=== PATIENT | female | born 1930 | race African-American/Black ===

== ENCOUNTER 2017-08-21 09:47 | Outpatient (CLI) | payer OTHER ==
[2017-08-21] MEDS ORDERED: NS 50 ML IV ONE (10:11)
[2017-08-21] MEDS ORDERED: IOHEXOL 50 ML IV ONE (10:11)
[2017-08-21] MEDS ORDERED: methylPREDNISolone ACETATE 80 MG/ML ONE (10:12)
[2017-08-21] MEDS ORDERED: LIDOCAINE 1%, 20 ML MDV 20 ML ONE (10:12)
[2017-08-21] MEDS ORDERED: BUPIVACAINE /PF 0.25% 30 ML VIAL INJ ONE (10:13)
== END 2017-08-21 21:01 | disposition home or self-care (01) ==
LOC: SRD 09:47
PROVIDERS: ATTEND Psychiatry & Neurology Neurology
DX: M16.11 Unilateral primary osteoarthritis, right hip (principal)
CPT/HCPCS: 76000; J1040; J2001; J3490; Q9967

== ENCOUNTER 2017-10-14 22:57 | Emergency (ER) | payer OTHER ==
[~2017-10-14] VITALS: Ht 157.5 cm; Wt 63.5 kg
[~2017-10-14 22:57] MED LIST: ALBU8.5H8 INH; CALC-226 PO; DIPH25CA83 PO; FLUT1DIS5 INH; FOLI-59 PO; LEVO50TA77 PO; LORA10TA7 PO; MONT10TA25 PO; OMEG1CAP55 PO; SPRIVA; [UNRECOGNIZED DRUG - OTHER]; tylenol arthritis PO
[2017-10-14 23:00] VITALS: BP_SYST 157
[2017-10-14] MEDS ORDERED: ONDANSETRON HCL 4 MG/2 ML VIAL IVP ONE (23:15)
[2017-10-14] MEDS ORDERED: MORPHINE 2 MG/ML INJ. SYRINGE IVP ONE (23:15)
[2017-10-14 23:47] LABS: BASOPHILS # (AUTO) 0.1 K/uL (0.0-0.2); BASOPHILS % (AUTO) 1.2 % (0.0-2.0); EOSINOPHILS # (AUTO) 0.1 K/uL (0.0-0.4); EOSINOPHILS % (AUTO) 0.9 % (0.0-4.0); HEMOGLOBIN 13.3 g/dL (12.0-16.0); LYMPHOCYTES # (AUTO) 2.5 K/uL (1.0-5.5); LYMPHOCYTES % (AUTO) 30.9 % (20.5-51.5); MEAN CORPUSCULAR HEMOGLOBIN 34 pg (27-31); MEAN CORPUSCULAR HGB CONC 33 % (32-36); MEAN CORPUSCULAR VOLUME 102 fL (79.0-98.0); MONOCYTES # (AUTO) 0.7 K/uL (0.0-1.0); MONOCYTES % (AUTO) 8.4 % (1.7-9.3); NEUTROPHILS # (AUTO) 4.8 K/uL (1.8-7.7); NEUTROPHILS % (AUTO) 58.6 % (40.0-70.0); PLATELET COUNT (AUTO) 259 K/uL (130-430); RED BLOOD CELL COUNT(AUTO) 3.94 MIL/uL (4.2-6.2); RED CELL DISTRIBUTION WIDTH 11.6 % (9.0-15.0); WHITE BLOOD COUNT (AUTO) 8.2 K/uL (4.8-10.8)
[2017-10-15] LABS: ANION GAP 10 (5-15); CALCIUM 8.8 mg/dL (8.4-11.0); CHLORIDE 104 mmol/L (98-107); CREATININE 0.77 mg/dL (0.55-1.30); GLUCOSE 129 mg/dL (70-99); POTASSIUM 4.1 mmol/L (3.5-5.1); SODIUM SERUM 140 mmol/L (136-145); UREA NITROGEN, BLOOD 12 mg/dL (8-21)
[2017-10-15 00:04] LABS: ALANINE AMINOTRANSFERASE 35 U/L (12-78); ALBUMIN 4.3 g/dL (3.4-4.8); ASPARTATE AMINOTRANSFERASE 23 U/L (10-37); TOTAL BILIRUBIN 0.3 mg/dL (0.0-1.0)
[2017-10-15] MEDS ORDERED: MORPHINE 4 MG/ML INJ. SYRINGE IVP ONE (00:15)
[2017-10-15 00:35] VITALS: BP_SYST 155
== END 2017-10-15 00:35 | disposition home or self-care (01) ==
LOC: SED 22:57
DX: H92.01 Otalgia, right ear (principal); N39.0 Urinary tract infection, site not specified; J45.909 Unspecified asthma, uncomplicated; I10 Essential (primary) hypertension; Z79.899 Other long term (current) drug therapy; Z88.2 Allergy status to sulfonamides
CPT/HCPCS: 36415; 80053; 85025; 96374; 96375; 96376; 99284; J2270 ×2; J2405

== ENCOUNTER 2017-12-15 08:38 | Outpatient (CLI) | payer OTHER ==
[2017-12-15] MEDS ORDERED: DEXAMETHASONE SOD PHOSPHATE 4 MG/ML VIAL ONE (09:08)
[2017-12-15] MEDS ORDERED: LIDOCAINE 1%, 20 ML MDV 20 ML ONE (09:09)
[2017-12-15] MEDS ORDERED: BUPIVACAINE /PF 0.25% 30 ML VIAL INJ ONE (09:09)
[2017-12-15] MEDS ORDERED: IOHEXOL 50 ML IV ONE (09:10)
[2017-12-15] MEDS ORDERED: methylPREDNISolone ACETATE 80 MG/ML ONE (09:22)
== END 2017-12-15 19:09 | disposition home or self-care (01) ==
LOC: SRD 08:38
PROVIDERS: ATTEND Family Medicine
DX: M17.11 Unilateral primary osteoarthritis, right knee (principal)
CPT/HCPCS: 20610; 77002; J1040; J2001; J3490; Q9967; J1100

== ENCOUNTER 2018-03-09 18:23 | Emergency (ER) | payer OTHER ==
[~2018-03-09] VITALS: Ht 165.1 cm; Wt 77.1 kg
[2018-03-09 18:42] VITALS: BP_SYST 181
[2018-03-09 19:20] LABS: BASOPHILS # (AUTO) 0.1 K/uL (0.0-0.2); EOSINOPHILS # (AUTO) 0.1 K/uL (0.0-0.4); HEMOGLOBIN 12.6 g/dL (12.0-16.0); LYMPHOCYTES # (AUTO) 2.5 K/uL (1.0-5.5); LYMPHOCYTES % (AUTO) 27.5 % (20.5-51.5); MEAN CORPUSCULAR HEMOGLOBIN 33 pg (27-31); MEAN CORPUSCULAR HGB CONC 33 % (32-36); MEAN CORPUSCULAR VOLUME 100 fL (79.0-98.0); MONOCYTES # (AUTO) 0.8 K/uL (0.0-1.0); MONOCYTES % (AUTO) 8.9 % (1.7-9.3); NEUTROPHILS # (AUTO) 5.5 K/uL (1.8-7.7); NEUTROPHILS % (AUTO) 61.6 % (40.0-70.0); PLATELET COUNT (AUTO) 260 K/uL (130-430); RED BLOOD CELL COUNT(AUTO) 3.78 MIL/uL (4.2-6.2); RED CELL DISTRIBUTION WIDTH 11.5 % (9.0-15.0)
[2018-03-09 19:27] LABS: ANION GAP 7 (5-15); CALCIUM 9.5 mg/dL (8.4-11.0); CHLORIDE 106 mmol/L (98-107); CREATININE 0.76 mg/dL (0.55-1.30); GLUCOSE 108 mg/dL (70-99); SODIUM SERUM 138 mmol/L (136-145); UREA NITROGEN, BLOOD 10 mg/dL (8-21)
[2018-03-09 19:32] LABS: ALANINE AMINOTRANSFERASE 31 U/L (12-78); ALBUMIN 3.7 g/dL (3.4-4.8); ASPARTATE AMINOTRANSFERASE 23 U/L (10-37); LIPASE 98 U/L (73-393); TOTAL BILIRUBIN 0.3 mg/dL (0.0-1.0)
[2018-03-09 20:12] LABS: PROTHROMBIN TIME 10.5 SECS (9.5-12.5)
[2018-03-09 20:12] LABS: BILIRUBIN,URINE NEGATIVE (NEGATIVE); BLOOD, URINE NEGATIVE (NEGATIVE); CLARITY/URINE CLEAR (CLEAR); COLOR,URINE YELLOW (YELLOW); GLUCOSE,URINE NEGATIVE (NEGATIVE); KETONES,URINE NEGATIVE (NEGATIVE); LEUKOCYTE ESTERASE ,URINE NEGATIVE (NEGATIVE); NITRITE, URINE NEGATIVE (NEGATIVE); PROTEIN URINE NEGATIVE (NEGATIVE); UROBILINOGEN,URINE 0.2 (0.2-1.0)
[2018-03-09] MEDS ORDERED: NACL 0.9% 1,000 ML IV ONE (20:15)
[2018-03-09] MEDS ORDERED: MAGNESIUM CITRATE 300 ML ORAL SOLUTION PO ONE (20:45)
[2018-03-09 21:25] VITALS: BP_SYST 187
== END 2018-03-09 21:25 | disposition home or self-care (01) ==
LOC: SED 18:23
DX: K59.00 Constipation, unspecified (principal); I10 Essential (primary) hypertension; J45.909 Unspecified asthma, uncomplicated; Z96.642 Presence of left artificial hip joint; Z88.6 Allergy status to analgesic agent; Z79.899 Other long term (current) drug therapy
CPT/HCPCS: 36415; 71045; 74021; 74176; 80053; 81003; 83605; 83690; 84484; 85025; 85610; 85730; 87040; 87086; 93005; 99285; J7030

== ENCOUNTER 2018-08-02 08:24 | Emergency (ER) | payer OTHER ==
[~2018-08-02] VITALS: Ht 167.6 cm; Wt 65.8 kg
[~2018-08-02 08:24] MED LIST changes: -CALC-226 PO; +CALC-823 PO; -LEVO50TA77 PO; +SYN50 PO
[2018-08-02 08:35] VITALS: BP_SYST 166
[2018-08-02] MEDS ORDERED: MORPHINE 4 MG/ML INJ. SYRINGE IM ONE (09:00)
[2018-08-02] MEDS ORDERED: ONDANSETRON 4 MG ODT TAB PO ONE (09:00)
[2018-08-02 09:40] VITALS: BP_SYST 162
== END 2018-08-02 09:40 | disposition home or self-care (01) ==
LOC: SED 08:24
DX: G89.29 Other chronic pain (principal); M25.551 Pain in right hip; J45.909 Unspecified asthma, uncomplicated; I10 Essential (primary) hypertension; Z88.6 Allergy status to analgesic agent; Z79.899 Other long term (current) drug therapy
CPT/HCPCS: 96372; 99283; J2270; Q0162

== ENCOUNTER 2018-09-13 06:46 | Emergency (ER) | payer OTHER ==
[~2018-09-13] VITALS: Ht 165.1 cm; Wt 63.5 kg
[2018-09-13 06:50] VITALS: BP_SYST 159
--- NOTE | 2018-09-13 06:55 | NUR ---
Patient to ER bed 7 to gown for evaluation. Side rails up. Report received by .
[2018-09-13] MEDS ORDERED: NACL 0.9% 1,000 ML IV ONE (07:15)
[2018-09-13] MEDS ORDERED: MECLIZINE HCL 25 MG TABLET (ANITVERT) PO ONE (07:15)
--- NOTE | 2018-09-13 07:26 | NUR ---
Pt complaining of dizziness and generalized weakness after taking her scheduled Gabopentin at 2300 last night. No complaint of pain or SOB. right eye does not open but PT stated this is normal and that she is already under care for the condition: denies Hx of CVA, hand and pedal strength strong and equal. Pt is [employer] and left her hearing aids at home. Pt also wears corrective lenses which are not with her.
[2018-09-13 07:40] LABS: BASOPHILS # (AUTO) 0.1 K/uL (0.0-0.2); BASOPHILS % (AUTO) 0.8 % (0.0-2.0); EOSINOPHILS # (AUTO) 0.1 K/uL (0.0-0.4); EOSINOPHILS % (AUTO) 1.1 % (0.0-4.0); HEMATOCRIT 41.4 % (36-48); LYMPHOCYTES # (AUTO) 1.7 K/uL (1.0-5.5); LYMPHOCYTES % (AUTO) 20.9 % (20.5-51.5); MEAN CORPUSCULAR HEMOGLOBIN 31 pg (27-31); MEAN CORPUSCULAR HGB CONC 31 % (32-36); MEAN CORPUSCULAR VOLUME 100 fL (79.0-98.0); MONOCYTES # (AUTO) 0.6 K/uL (0.0-1.0); NEUTROPHILS # (AUTO) 5.5 K/uL (1.8-7.7); NEUTROPHILS % (AUTO) 69.2 % (40.0-70.0); PLATELET COUNT (AUTO) 249 K/uL (130-430); RED BLOOD CELL COUNT(AUTO) 4.14 MIL/uL (4.2-6.2); RED CELL DISTRIBUTION WIDTH 11.3 % (9.0-15.0)
--- NOTE | 2018-09-13 07:40 | NUR ---
Received call from Pt's son, who stated she has mild dementia and is under the impression she should walk around after taking gabopentin, even though her MD told her it can cause dizziness.
[2018-09-13 07:44] LABS: ANION GAP 9 (5-15); CALCIUM 9.7 mg/dL (8.4-11.0); CHLORIDE 103 mmol/L (98-107); CREATININE 0.69 mg/dL (0.55-1.30); GLUCOSE 110 mg/dL (70-99); POTASSIUM 3.9 mmol/L (3.5-5.1); SODIUM SERUM 139 mmol/L (136-145); UREA NITROGEN, BLOOD 13 mg/dL (8-21)
[2018-09-13 07:48] LABS: PROTHROMBIN TIME 9.7 SECS (9.5-12.5)
[2018-09-13 07:49] LABS: ALANINE AMINOTRANSFERASE 25 U/L (12-78); ALBUMIN 3.8 g/dL (3.4-4.8); ASPARTATE AMINOTRANSFERASE 19 U/L (10-37); TOTAL BILIRUBIN 0.5 mg/dL (0.0-1.0)
--- NOTE | 2018-09-13 08:45 | NUR ---
ER Dr. Eason at bedside examining patient.
--- NOTE | 2018-09-13 08:57 | NUR ---
Pt refused angiocath, even after MD consult. MD notified.
--- NOTE | 2018-09-13 09:14 | NUR ---
Patient given written and verbal discharge instructions and verbalizes understanding. ER MD discussed with patient the results and treatment provided. Patient in stable condition. ID arm band removed. Rx of Meclizine given. Patient educated on pain management and to follow up with PMD. Pain Scale 0/10. Opportunity for questions provided and answered. Medication side effect fact sheet provided.
[2018-09-13 09:19] VITALS: BP_SYST 146
== END 2018-09-13 09:14 | disposition home or self-care (01) ==
LOC: SED 06:46
DX: R42 Dizziness and giddiness (principal); G89.29 Other chronic pain; J45.909 Unspecified asthma, uncomplicated; I10 Essential (primary) hypertension; Z79.899 Other long term (current) drug therapy; Z88.6 Allergy status to analgesic agent
CPT/HCPCS: 36415; 70450; 71045; 80053; 83605; 84484; 85025; 85610; 85730; 87040; 93005; 99285; J7030; J8597

== ENCOUNTER 2019-01-07 17:48 | Inpatient (IN) | payer OTHER ==
[~2019-01-07] VITALS: Ht 165.1 cm; Wt 63.6 kg
[2019-01-07 17:59] VITALS: BP_SYST 122
[2019-01-07 18:49] LABS: BASOPHILS # (AUTO) 0.1 K/uL (0.0-0.2); BASOPHILS % (AUTO) 0.5 % (0.0-2.0); EOSINOPHILS # (AUTO) 0.1 K/uL (0.0-0.4); EOSINOPHILS % (AUTO) 0.9 % (0.0-4.0); HEMOGLOBIN 13.5 g/dL (12.0-16.0); LYMPHOCYTES # (AUTO) 2.2 K/uL (1.0-5.5); LYMPHOCYTES % (AUTO) 20.3 % (20.5-51.5); MEAN CORPUSCULAR HEMOGLOBIN 32 pg (27-31); MEAN CORPUSCULAR HGB CONC 33 % (32-36); MEAN CORPUSCULAR VOLUME 97 fL (79.0-98.0); MONOCYTES # (AUTO) 0.6 K/uL (0.0-1.0); MONOCYTES % (AUTO) 5.2 % (1.7-9.3); NEUTROPHILS # (AUTO) 7.8 K/uL (1.8-7.7); NEUTROPHILS % (AUTO) 73.1 % (40.0-70.0); PLATELET COUNT (AUTO) 205 K/uL (130-430); RED BLOOD CELL COUNT(AUTO) 4.24 MIL/uL (4.2-6.2); RED CELL DISTRIBUTION WIDTH 12.4 % (9.0-15.0); WHITE BLOOD COUNT (AUTO) 10.8 K/uL (4.8-10.8)
[2019-01-07 19:05] LABS: ANION GAP 8 (5-15); CALCIUM 9.4 mg/dL (8.4-11.0); CHLORIDE 104 mmol/L (98-107); CREATININE 0.85 mg/dL (0.55-1.30); GLUCOSE 116 mg/dL (70-99); POTASSIUM 4.1 mmol/L (3.5-5.1); SODIUM SERUM 139 mmol/L (136-145); UREA NITROGEN, BLOOD 21 mg/dL (8-21)
[2019-01-07 19:09] LABS: INR 0.9 (0.8-1.2); PROTHROMBIN TIME 9.5 SECS (9.5-12.5)
[2019-01-07 19:11] LABS: ALANINE AMINOTRANSFERASE 26 U/L (12-78); ALBUMIN 3.7 g/dL (3.4-4.8); ASPARTATE AMINOTRANSFERASE 28 U/L (10-37); TOTAL BILIRUBIN 0.3 mg/dL (0.0-1.0)
[2019-01-07] MEDS ORDERED: LIDOCAINE/EPI 1% 1:100000 20 ML VIAL IJ ONE (21:00)
[2019-01-07] MEDS ORDERED: BACITRACIN 1 GM OINT TP ONE (21:00)
[2019-01-07] MEDS ORDERED: LevALBUTEROL HCL 1.25 MG/0.5 ML *CONC.* VIAL.NEB (XOPENEX CONC.) INH ONE (22:00)
[2019-01-07] MEDS ORDERED: IPRATROPIUM BROM 0.5 MG/2.5 ML VIAL.NEB (ATROVENT) IH ONE (22:00)
[2019-01-07] MEDS ORDERED: CELE50CA PO (22:07)
[2019-01-07] MEDS ORDERED: DILT30TA36 PO (22:08)
[2019-01-07] MEDS ORDERED: ACETAMINOPHEN 325 MG TABLET PO PRN (23:15)
[2019-01-07 23:35] VITALS: BP_SYST 130
[2019-01-08 03:01] VITALS: BP_SYST 130
[2019-01-08] MEDS: IPRATROPIUM/ALBUTEROL SULFATE 3 ML AMPUL.NEB (DUONEB) INH SCH ×3 (07:45→23:16)
[2019-01-08 08:24] VITALS: BP_SYST 154
[2019-01-08] MEDS: FAMOTIDINE 20 MG TABLET PO SCH (08:26)
[2019-01-08] MEDS ORDERED: LEVOTHYROXINE SODIUM 0.05 MG TABLET PO ONE (08:30)
[2019-01-08 08:46] VITALS: BP_SYST 154
[2019-01-08] MEDS: ACETAMINOPHEN 325 MG TABLET PO PRN (09:11)
[2019-01-08 11:26] VITALS: BP_SYST 145
[2019-01-08 12:36] LABS: BILIRUBIN,URINE NEGATIVE (NEGATIVE); BLOOD, URINE NEGATIVE (NEGATIVE); CLARITY/URINE CLEAR (CLEAR); COLOR,URINE YELLOW (YELLOW); GLUCOSE,URINE NEGATIVE (NEGATIVE); KETONES,URINE NEGATIVE (NEGATIVE); LEUKOCYTE ESTERASE ,URINE NEGATIVE (NEGATIVE); NITRITE, URINE NEGATIVE (NEGATIVE); PH,URINE 5.5 (5.0-8.0); PROTEIN URINE NEGATIVE (NEGATIVE); UROBILINOGEN,URINE 0.2 (0.2-1.0)
[2019-01-08] MEDS ORDERED: ZOLPIDEM TARTRATE 5 MG TABLET PO PRN (14:00)
[2019-01-08 15:37] VITALS: BP_SYST 140
[2019-01-08] MEDS: MONTELUKAST 10 MG TABLET PO SCH (17:38)
[2019-01-08 20:36] VITALS: BP_SYST 155
[2019-01-08] MEDS: GABAPENTIN 100 MG CAPSULE PO SCH (20:37)
[2019-01-09 01:32] VITALS: BP_SYST 137
[2019-01-09] MEDS: ACETAMINOPHEN 325 MG TABLET PO PRN (05:56)
[2019-01-09] MEDS: LEVOTHYROXINE SODIUM 0.05 MG TABLET PO SCH (06:00)
[2019-01-09] MEDS: IPRATROPIUM/ALBUTEROL SULFATE 3 ML AMPUL.NEB (DUONEB) INH SCH ×3 (07:30→23:03)
[2019-01-09 08:02] VITALS: BP_SYST 120
[2019-01-09] MEDS: FAMOTIDINE 20 MG TABLET PO SCH (08:11)
[2019-01-09 11:35] VITALS: BP_SYST 92
[2019-01-09 15:37] VITALS: BP_SYST 105
[2019-01-09] MEDS: MONTELUKAST 10 MG TABLET PO SCH (17:06)
[2019-01-09 21:09] VITALS: BP_SYST 119
[2019-01-09] MEDS: GABAPENTIN 100 MG CAPSULE PO SCH (22:20)
[2019-01-10 03:53] VITALS: BP_SYST 89
[2019-01-10 04:12] VITALS: BP_SYST 121
[2019-01-10] MEDS: LEVOTHYROXINE SODIUM 0.05 MG TABLET PO SCH (05:59)
[2019-01-10] MEDS: IPRATROPIUM/ALBUTEROL SULFATE 3 ML AMPUL.NEB (DUONEB) INH SCH ×2 (07:29→15:21)
[2019-01-10 08:00] VITALS: BP_SYST 102
[2019-01-10] MEDS: FAMOTIDINE 20 MG TABLET PO SCH (08:15)
[2019-01-10] MEDS: ACETAMINOPHEN 325 MG TABLET PO PRN (11:37)
[2019-01-10 11:41] VITALS: BP_SYST 122
[2019-01-10 14:22] VITALS: BP_SYST 122
[2019-01-10 16:40] VITALS: BP_SYST 118; BP_SYST 154
== END 2019-01-10 15:44 | DRG 605 ==
LOC: SED 17:48 → SMU 23:02
PROVIDERS: ADMIT Internal Medicine; ATTEND Internal Medicine
PROC: 0HQ1XZZ Repair Face Skin, External Approach (ICD-10-PCS; principal; 2019-01-07)
DX: S01.81XA Laceration without foreign body of other part of head, initial encounter (principal); J45.901 Unspecified asthma with (acute) exacerbation; S09.8XXA Other specified injuries of head, initial encounter; E03.9 Hypothyroidism, unspecified; I10 Essential (primary) hypertension; M19.90 Unspecified osteoarthritis, unspecified site; R29.6 Repeated falls; Z96.649 Presence of unspecified artificial hip joint; R26.9 Unspecified abnormalities of gait and mobility; G89.29 Other chronic pain; R73.9 Hyperglycemia, unspecified; W18.09XA Striking against other object with subsequent fall, initial encounter; Y93.89 Activity, other specified; Y92.89 Other specified places as the place of occurrence of the external cause; Y99.8 Other external cause status; Z88.6 Allergy status to analgesic agent; Z79.899 Other long term (current) drug therapy
CPT/HCPCS: 36415; 70450-TC; 70486-TC; 73030; 80053; 81003; 82306; 82607; 84443-TC; 84484; 85025; 85610-TC; 85730-TC; 93005; 94640; 94760; 97116-GP; 97530-GP; 99285; J7612; J7620

== ENCOUNTER 2019-08-29 17:21 | Inpatient (IN) | payer OTHER ==
[~2019-08-29] VITALS: Ht 157.5 cm; Wt 59.0 kg
[2019-08-29 17:21] VITALS: BP_SYST 175
[~2019-08-29 17:21] MED LIST changes: +CELE50CA PO; +DILT30TA36 PO; -LORA10TA7 PO
--- NOTE | 2019-08-29 17:21 | NUR ---
BROUGHT BACK TO BED #1 VIA WHEELCHAIR, PLACED IN BED AND TRIAGED. REPORT GIVEN TO RHINA
--- NOTE | 2019-08-29 17:30 | NUR ---
pt brought in by son Jaylyn Washington. Pt and son state that she has been feeling dizzy, weak, excessively thirsty for past few days. Pt denies chest pain, n/v, diarrhea, sob. Pt denies any other medical complaint at this time. Pt given warm blanket and pillow. Pt vss, placed on monitor, will continue to monitor. Pt son bedside, assisting in evaluation. Pt and family state pt is full code.
--- NOTE | 2019-08-29 17:32 | NUR ---
ROCIO Valente at bedside examining patient.
[2019-08-29] MEDS ORDERED: NACL 0.9% 1,000 ML IV ONE (17:45)
[2019-08-29] MEDS ORDERED: hydrALAZINE HCL 20 MG/ML VIAL IVP ONE (18:15)
[2019-08-29 18:17] LABS: BASOPHILS # (AUTO) 0.1 K/uL (0.0-0.2); BASOPHILS % (AUTO) 1.4 % (0.0-2.0); EOSINOPHILS # (AUTO) 0.1 K/uL (0.0-0.4); EOSINOPHILS % (AUTO) 0.6 % (0.0-4.0); HEMATOCRIT 39.6 % (36-48); HEMOGLOBIN 13.3 g/dL (12.0-16.0); LYMPHOCYTES # (AUTO) 2.2 K/uL (1.0-5.5); MEAN CORPUSCULAR HEMOGLOBIN 35 pg (27-31); MEAN CORPUSCULAR HGB CONC 34 % (32-36); MEAN CORPUSCULAR VOLUME 103 fL (79.0-98.0); NEUTROPHILS # (AUTO) 6.6 K/uL (1.8-7.7); PLATELET COUNT (AUTO) 228 K/uL (130-430); RED BLOOD CELL COUNT(AUTO) 3.83 MIL/uL (4.2-6.2); RED CELL DISTRIBUTION WIDTH 12.3 % (9.0-15.0); WHITE BLOOD COUNT (AUTO) 10.1 K/uL (4.8-10.8)
[2019-08-29 18:26] LABS: ANION GAP 8 (5-15); CALCIUM 9.3 mg/dL (8.4-11.0); CHLORIDE 103 mmol/L (98-107); CREATININE 0.68 mg/dL (0.55-1.30); GLUCOSE 103 mg/dL (70-99); POTASSIUM 3.9 mmol/L (3.5-5.1); SODIUM SERUM 138 mmol/L (136-145); UREA NITROGEN, BLOOD 12 mg/dL (8-21)
[2019-08-29 18:32] LABS: ALANINE AMINOTRANSFERASE 19 U/L (12-78); ASPARTATE AMINOTRANSFERASE 21 U/L (10-37); TOTAL BILIRUBIN 0.4 mg/dL (0.0-1.0)
[2019-08-29 18:35] LABS: BILIRUBIN,URINE NEGATIVE (NEGATIVE); BLOOD, URINE NEGATIVE (NEGATIVE); CLARITY/URINE CLEAR (CLEAR); COLOR,URINE YELLOW (YELLOW); GLUCOSE,URINE NEGATIVE (NEGATIVE); KETONES,URINE NEGATIVE (NEGATIVE); LEUKOCYTE ESTERASE ,URINE NEGATIVE (NEGATIVE); NITRITE, URINE NEGATIVE (NEGATIVE); PROTEIN URINE NEGATIVE (NEGATIVE); UROBILINOGEN,URINE 0.2 (0.2-1.0)
--- NOTE | 2019-08-29 19:00 | NUR ---
- Auther Felix, son Phone number.
--- NOTE | 2019-08-29 19:30 | NUR ---
Pt bed linen changed due to urinary incontinence. New gown, New linens, New warm blanket. pt rolled to perform linen replacement.
--- NOTE | 2019-08-29 19:41 | NUR ---
Pt was given apple juice at request. Pt swallowed without complication.
--- NOTE | 2019-08-29 20:30 | NUR ---
Patient transported to radiology via [place], accompanied by Caitlin.
--- NOTE | 2019-08-29 20:45 | NUR ---
Returned from radiology, back to [facility].
--- NOTE | 2019-08-29 21:00 | NUR ---
Pt son stated that he forgot medication list at home. Stated he will come back and visit tomorrow and to call if she needs to be transferred to different facility.
--- NOTE | 2019-08-29 22:28 | NUR ---
Phone orders from . Read back and confirmed.
--- NOTE | 2019-08-29 22:29 | NUR ---
M/S floor called, pt going to 104B
--- NOTE | 2019-08-29 22:33 | NUR ---
Gave report to DILLON Funes. Endorsed all care
--- NOTE | 2019-08-29 22:51 | NUR ---
ADMISSION NOTE Received patient from ER via [place], received report from DILLON cantu. Patient admitted with diagnosis of acute diverticulitis. Patient oriented to hospital routine, call light, toileting and safety-patient verbalized understanding.
[2019-08-29 23:00] VITALS: BP_SYST 136
--- NOTE | 2019-08-29 23:00 | NUR ---
INITIAL NOTE AT INITIAL ASSESSMENT, PATIENT IS RESTING IN BED, STABLE, NO SIGNS OF RESPIRATORY DISTRESS. PLAN OF CARE FOR THE EVENING IS COMMUNICATED WITH THE PATIENT. PATIENT VERBALIZES SOME PAIN, PRN MEDICATION MEDICATION FOR PAIN WILL BE REQUESTED FROM THE MD. PATIENT REFUSES TEACHING FOR CALL LIGHT. BED IS LOCKED, ALARMED, AND AT THE LOWEST LEVEL. FALL AND SAFETY PRECAUTIONS WILL BE TAKEN THROUGHOUT THE SHIFT.
[2019-08-29] MEDS ORDERED: ACETAMINOPHEN 325 MG TABLET PO PRN (23:15)
[2019-08-29] MEDS ORDERED: traMADol HCL HCL 50 MG TABLET (ULTRAM) PO PRN (23:15)
[2019-08-29] MEDS ORDERED: DIPHENHYDRAMINE HCL 25 MG CAPSULE PO PRN (23:15)
[2019-08-29] MEDS ORDERED: cloNIDine HCL 0.1 MG TABLET PO PRN (23:15)
[2019-08-29] MEDS ORDERED: ALBUTEROL SULFATE 0.083% 2.5 MG/3 ML VIAL.NEB INH PRN (23:30)
--- NOTE | 2019-08-29 23:30 | NUR ---
DR. JUSTIN ROUNDS DR. JUSTIN IS AT PATIENT'S BEDSIDE AT THIS TIME FOR ROUNDS.
[2019-08-29] MEDS: GABAPENTIN 100 MG CAPSULE PO ONE (23:49)
[2019-08-29 23:53] VITALS: BP_SYST 136
[2019-08-29] MEDS: DILTIAZEM HCL 30 MG TABLET PO ONE (23:58)
[2019-08-29] MEDS: LR 1,000 ML IV SCH (23:59)
[2019-08-30] MEDS ORDERED: LORazepam 2 MG/ML VIAL IVP PRN
--- NOTE | 2019-08-30 00:10 | NUR ---
PATIENT REFUSES MEDS PATIENT IS REFUSING MEDICATIONS AT THIS TIME WHICH ARE MEDICATIONS THAT SHE HERSELF REQUESTED DURING ADMISSION TO [facility] FLOOR. SHE STATES "THEY DON'T LOOK LIKE THE ONES I TAKE!" EDUCATIONAL EFFORTS ON MEDICATIONS WERE UNSUCCESSFUL.
[2019-08-30] MEDS: DILTIAZEM HCL 30 MG TABLET PO ONE (00:26)
[2019-08-30] MEDS ORDERED: PIPERACILLIN/TAZOBACTAM 3.375 GM/VIAL (ZOSYN) IV ONE (00:26)
[2019-08-30] MEDS: LR 1,000 ML IV SCH (00:26)
[2019-08-30] MEDS: GABAPENTIN 100 MG CAPSULE PO ONE (00:27)
--- NOTE | 2019-08-30 00:30 | NUR ---
PATIENT PULLS OUT IV PATIENT PULLED OUT HER IV AT THIS TIME, CATHETER TIP IS FOUND WITH TIP INTACT. PATIENT HAS NO ACTIVE BLEED. SHE IS UNCOOPERATIVE AT THIS TIME AND REFUSES TO HAVE AN IV PLACED ON HER DESPITE EDUCATIONAL EFFORTS. WILL CONTINUE TO ENCOURAGE.
[2019-08-30] MEDS ORDERED: HALOPERIDOL LACTATE 5 MG/ML VIAL IM PRN (01:00)
--- NOTE | 2019-08-30 02:00 | NUR ---
BEHAVIOR NOTE PATIENT HAS BEEN RESTLESS, SHE TRIED TO KICK WILL DIAS WHILE LARISSA WAS TRYING TO ASSIST HER TO THE BEDSIDE COMMODE PER PATIENT REQUEST. PATIENT BEHAVES AGGRESSIVELY WHILE STAFF MEMBERS ARE IN HER SIGHT; SHE IS CALM WHEN SHE IS BEING WATCHED FROM THE NURSING STATION WITHOUT HER KNOWING. SHE IS AGGRAVATED WHEN STAFF TRY TO HELP HER SAFELY GET INTO BED DESPITE HER BLE WEAKNESS. EVEN AFTER PROVIDING HYGIENE CARE, FRESH WARM BLANKETS AND SNACKS, PATIENT STATES "YOU ARE ARE ALL GOING TO LONG-TERM FOR KIDNAPPING ME". FALL AND SAFETY PRECAUTIONS ARE IN PLACE.
--- NOTE | 2019-08-30 04:00 | NUR ---
NOTE PATIENT BEHAVIOR CONTINUES TO BE RESTLESS AT TIMES. SHE IS STABLE, NO SIGNS OF RESPIRATORY DISTRESS. BED IS LOCKED, ALARMED, AND AT THE LOWEST LEVEL.
--- NOTE | 2019-08-30 05:30 | NUR ---
NOTE PATIENT BEHAVIOR CONTINUES TO BE RESTLESS AT TIMES. SHE IS STABLE, NO SIGNS OF RESPIRATORY DISTRESS. BED IS LOCKED, ALARMED, AND AT THE LOWEST LEVEL.
[2019-08-30] MEDS: PIPERACILLIN/TAZOBACTAM 2.25 GM in NS 50 ML IV SCH ×4 (06:00→12:48)
--- NOTE | 2019-08-30 06:36 | NUR ---
FAMILY CALLED SON JENNI PAGED AT THIS TIME TO INQUIRE ABOUT PATIENT'S BASELINE BEHAVIOR. VOICEMAIL LEFT ON ANSWERING MACHINE REQUESTING CALL BACK.
--- NOTE | 2019-08-30 06:38 | NUR ---
CLOSING NOTE PATIENT BEHAVIOR REMAINED RESTLESS THROUGHOUT THE NIGHT. AT THIS TIME, PATIENT IS RESTING IN BED, STABLE, NO SIGNS OF RESPIRATORY DISTRESS. CALL LIGHT IS WITHIN REACH. BED IS LOCKED, ALARMED, AND AT THE LOWEST LEVEL. FALL AND SAFETY PRECAUTIONS HAVE BEEN TAKEN THROUGHOUT THE SHIFT. WILL CONTINUE TO MONITOR UNTIL SHIFT REPORT IS GIVEN AT BEDSIDE TO AM NURSE.
[2019-08-30] MEDS: LEVOTHYROXINE SODIUM 0.05 MG TABLET PO SCH (06:41)
--- NOTE | 2019-08-30 07:08 | NUR ---
Nutrition Update Nii Scale 18 noted. Pt admitted for Acute Diverticulitis Diet: Regular BMI: 23.8 kg/m2 RD to follow per nutrition care standards.
[2019-08-30 07:27] LABS: BASOPHILS # (AUTO) 0.1 K/uL (0.0-0.2); BASOPHILS % (AUTO) 0.5 % (0.0-2.0); EOSINOPHILS % (AUTO) 0.1 % (0.0-4.0); HEMATOCRIT 38.4 % (36-48); LYMPHOCYTES # (AUTO) 1.5 K/uL (1.0-5.5); LYMPHOCYTES % (AUTO) 11.6 % (20.5-51.5); MEAN CORPUSCULAR HEMOGLOBIN 35 pg (27-31); MEAN CORPUSCULAR HGB CONC 34 % (32-36); MEAN CORPUSCULAR VOLUME 103 fL (79.0-98.0); MONOCYTES # (AUTO) 1.1 K/uL (0.0-1.0); MONOCYTES % (AUTO) 8.5 % (1.7-9.3); NEUTROPHILS # (AUTO) 10.2 K/uL (1.8-7.7); NEUTROPHILS % (AUTO) 79.3 % (40.0-70.0); PLATELET COUNT (AUTO) 219 K/uL (130-430); RED BLOOD CELL COUNT(AUTO) 3.74 MIL/uL (4.2-6.2); RED CELL DISTRIBUTION WIDTH 12.2 % (9.0-15.0); WHITE BLOOD COUNT (AUTO) 12.8 K/uL (4.8-10.8)
--- NOTE | 2019-08-30 07:40 | NUR ---
OPENING NOTES: RECEIVED PATIENT FROM BLEACHER LARD NURSE. PATIENT IS ASLEEP IN BED. NO SIGNS OF DISTRESS OR SHORTNESS OF BREATH NOTED. PATIENT HAS NO IV SITE AT THE MOMENT. WILL ATTEMPT TO PUT ONE IN LATER ON. PATIENT IS TOLERATING OXYGEN AT ROOM AIR. PATIENT IN STABLE CONDITION. SAFETY, FALL AND ASPIRATION PRECAUTIONS ARE IN PLACE. BED LOCKED IN LOWEST POSITION WITH CALL LIGHT IN REACH. WILL CONTINUE TO MONITOR PATIENT FOR ANY CHANGES.
[2019-08-30 07:44] LABS: ANION GAP 9 (5-15); CALCIUM 9.5 mg/dL (8.4-11.0); CHLORIDE 101 mmol/L (98-107); CREATININE 0.61 mg/dL (0.55-1.30); GLUCOSE 112 mg/dL (70-99); POTASSIUM 3.7 mmol/L (3.5-5.1); SODIUM SERUM 136 mmol/L (136-145); UREA NITROGEN, BLOOD 9 mg/dL (8-21)
[2019-08-30 08:18] LABS: ERYTHROCYTE SEDIMENTATION RATE 5 MM/HR (0-20)
[2019-08-30 08:29] VITALS: BP_SYST 134
[2019-08-30] MEDS ORDERED: CALCIUM CARBONATE/VITAMIN D3 1 TAB TABLET PO SCH ×2 (09:00→10:36)
--- NOTE | 2019-08-30 10:05 | NUR ---
RN ROUNDS: PATIENT IS ASLEEP IN BED. NO SIGNS OF DISTRESS OR SHORTNESS OF BREATH. PATIENT IS IN STABLE CONDITION. WILL CONTINUE TO MONITOR PATIENT FOR ANY CHANGES.
[2019-08-30] MEDS: OMEGA-3/DHA/EPA/FISH OIL 1 GM CAPSULE PO SCH (10:08)
[2019-08-30] MEDS: DILTIAZEM HCL 30 MG TABLET PO SCH ×3 (10:08→22:04)
[2019-08-30] MEDS: GABAPENTIN 100 MG CAPSULE PO SCH ×2 (10:09→22:03)
[2019-08-30] MEDS: QUEtiapine FUMARATE 25 MG TABLET PO SCH ×2 (10:09→22:03)
[2019-08-30] MEDS ORDERED: CALCIUM CARBONATE/VITAMIN D3 1 TAB TABLET PO ONE (10:45)
[2019-08-30 12:09] VITALS: BP_SYST 126
--- NOTE | 2019-08-30 12:10 | NUR ---
RN ROUNDS: PATIENT IS ASLEEP IN BED. NO SIGNS OF DISTRESS OR SHORTNESS OF BREATH. PATIENT IN STABLE CONDITION. WILL CONTINUE TO MONITOR PATIENT FOR ANY CHANGES.
--- NOTE | 2019-08-30 12:45 | NUR ---
IV INSERTION: PATIENT TOLERATED IV INSERTION WELL. ASEPTIC TECHNIQUE USED. SUCCESSFUL AFTER THREE ATTEMPTS. IV INSERTION IN RIGHT FOREARM 20 G WITH BLOOD RETURN AND FLUSHES WITH NORMAL SALINE. NO ACTIVE BLEEDING NOTED. IV SITE IS PATENT WITH NO SIGNS OF INFILTRATION. WILL CONTINUE TO MONITOR IV SITE.
--- NOTE | 2019-08-30 14:15 | NUR ---
RN ROUNDS: PATIENT IS ASLEEP IN BED. NO SIGNS OF DISTRESS OR SHORTNESS OF BREATH NOTED. IV SITE IS PATENT WITH NO SIGNS OF INFILTRATION. PATIENT IN STABLE CONDITION. WILL CONTINUE TO MONITOR PATIENT FOR ANY CHANGES.
--- NOTE | 2019-08-30 16:20 | NUR ---
RN ROUNDS: PATIENT IS ASLEEP IN BED. NO SIGNS OF DISTRESS OR SHORTNESS OF BREATH NOTED. PATIENT IN STABLE CONDITION. WILL CONTINUE TO MONITOR PATIENT FOR ANY CHANGES.
[2019-08-30 16:40] VITALS: BP_SYST 124
--- NOTE | 2019-08-30 17:45 | NUR ---
CONSULTATION PAGED REASON FOR CONSULTATION:DIZZY WAS CONSULT CALLED?Y PERSON WHO WAS NOTIFIED:OJSE ANGEL CONSULTING PHYSICIAN:YOLANDA DEAN DOUBLE BACKER SPECIALTY:NEURO DOUBLE BACKER PHONE NUMBER:[phone] ORDERING PHYSICIAN:BLAINE ALATORRE
[2019-08-30] MEDS: MONTELUKAST 10 MG TABLET PO SCH (18:27)
--- NOTE | 2019-08-30 18:50 | NUR ---
CLOSING NOTES: PATIENT IS ASLEEP IN BED. NO SIGNS OF DISTRESS OR SHORTNESS OF BREATH. IV SITE IS PATENT WITH NO SIGNS OF INFILTRATION. PATIENT IS TOLERATING OXYGEN AT ROOM AIR. PATIENT IN STABLE CONDITION. SAFETY, FALL AND ASPIRATION PRECAUTIONS ARE IN PLACE. BED LOCKED IN LOWEST POSITION WITH CALL LIGHT IN REACH. WILL ENDORSE PATIENT CARE TO ONCOMING BOILER ROOM HELPER NURSE.
--- NOTE | 2019-08-30 20:00 | NUR ---
Initial note: Received report from dayshift RN. Patient is sleeping, no acute distress. Even and unlabored breathing on room air. IV to right forearm is patent and benign. Call light is with patient. Safety, fall precautions in place. Will continue with plan of care.
[2019-08-30 20:55] VITALS: BP_SYST 110
--- NOTE | 2019-08-30 22:03 | NUR ---
Med pass: Scheduled medications were administered per MD order. Patient swallowed medications whole, tolerated well, and was cooperative. IV site to right forearm reinforced with Kerlix gauze. Call light with patient. Safety, fall precautions in place. Will continue to monitor.
--- NOTE | 2019-08-31 01:14 | NUR ---
Rounds: Patient is asleep, no acute distress. Even and unlabored breathing on room air. IV to right forearm is patent and benign. Call light is with patient. Will continue to monitor.
[2019-08-31 01:27] VITALS: BP_SYST 98
--- NOTE | 2019-08-31 04:45 | NUR ---
Rounds: Patient is sleeping comfortably in bed. Does not show any acute distress. Even and unlabored breathing on room air. IV site is patent and intact. Safety, fall precautions in place. Call light with patient. Will continue to monitor.
[2019-08-31] MEDS: LEVOTHYROXINE SODIUM 0.05 MG TABLET PO SCH (06:35)
--- NOTE | 2019-08-31 06:59 | NUR ---
Closing note: Patient is resting in bed, no distress noted. Tolerating room air. IV to right forearm patent and benign. SCD's in place per MD order. All needs met. Safety and fall precautions observed. Hourly rounding performed throughout shift. Will endorse care to dayshift RN.
--- NOTE | 2019-08-31 07:26 | NUR ---
OPENING NOTES: RECEIVED PATIENT FROM DIAL BUFFER NURSE. PATIENT IS ASLEEP IN BED. NO SIGNS OF DISTRESS OR SHORTNESS OF BREATH NOTED. PATIENT IS TOLERATING OXYGEN AT ROOM AIR. IV SITE IS PATENT WITH NO SIGNS OF INFILTRATION. PATIENT IN STABLE CONDITION. SAFETY, FALL AND ASPIRATION PRECAUTIONS ARE IN PLACE. BED LOCKED IN LOWEST POSITION WITH CALL LIGHT IN REACH. WILL CONTINUE TO MONITOR PATIENT FOR ANY CHANGES.
[2019-08-31 08:16] VITALS: BP_SYST 110
[2019-08-31] MEDS: GABAPENTIN 100 MG CAPSULE PO SCH ×3 (09:00→21:00)
[2019-08-31] MEDS ORDERED: CALCIUM CARBONATE/VITAMIN D3 1 TAB TABLET PO SCH (09:00)
[2019-08-31] MEDS: OMEGA-3/DHA/EPA/FISH OIL 1 GM CAPSULE PO SCH (10:09)
[2019-08-31] MEDS: QUEtiapine FUMARATE 25 MG TABLET PO SCH ×2 (10:09→21:00)
[2019-08-31] MEDS: DILTIAZEM HCL 30 MG TABLET PO SCH ×3 (10:11→21:00)
--- NOTE | 2019-08-31 12:20 | NUR ---
RN ROUNDS: PATIENT IS AWAKE AND ALERT x 1. PATIENT DENIES ANY PAIN. FAMILY MEMBER AT BEDSIDE. NO SIGNS OF DISTRESS OR SHORTNESS OF BREATH NOTED. PATIENT IN STABLE CONDITION. WILL CONTINUE TO MONITOR PATIENT FOR ANY CHANGES.
[2019-08-31 12:30] VITALS: BP_SYST 124
--- NOTE | 2019-08-31 14:14 | NUR ---
Discharge Planning: DCP faxed pt referral [facility] (f [phone] p [phone]) DCP to follow up. Addendum: 08/31/19 at 1454 by Gricelda Amador DP DCP spoke to Mart at [facility] (f [phone] p [phone]) will resume with pt upo DC.
[2019-08-31] MEDS ORDERED: FLU VACC TS2019(65UP)/MF59C/PF 45 MCG/0.5 ML SYRINGE I.M. PRN (14:15)
[2019-08-31 16:03] VITALS: BP_SYST 133
--- NOTE | 2019-08-31 16:09 | NUR ---
RN ROUNDS: PATIENT IS AWAKE AND ALERT x1. PATIENT DENIES ANY PAIN. NO SIGNS OF DISTRESS OR SHORTNESS OF BREATH NOTED. PATIENT IN STABLE CONDITION. WILL CONTINUE TO MONITOR PATIENT FOR ANY CHANGES.
[2019-08-31] MEDS: MONTELUKAST 10 MG TABLET PO SCH (17:53)
--- NOTE | 2019-08-31 18:50 | NUR ---
MD CALL DR GABRIEL GRAF, AWAITING CALL BACK TO ASK IF HE CLEARS PT TO D/C HOME TONIGHT PER ORDER FROM DR JUSTIN.
--- NOTE | 2019-08-31 18:52 | NUR ---
CLOSING NOTES: PATIENT IS AWAKE AND ALERT x1. FAMILY AT BEDSIDE. PATIENT DENIES ANY PAIN. NO SIGNS OF DISTRESS OR SHORTNESS OF BREATH NOTED. PATIENT IS TOLERATING OXYGEN AT ROOM AIR. IV SITE IS PATENT WITH NO SIGNS OF INFILTRATION. PATIENT IN STABLE CONDITION. SAFETY, FALL, AND ASPIRATION PRECAUTIONS ARE IN PLACE. BED LOCKED IN LOWEST POSITION WITH CALL LIGHT IN REACH. WILL ENDORSE PATIENT CARE TO ONCOMING HORSERADISH MAKER NURSE.
--- NOTE | 2019-08-31 19:26 | NUR ---
OPENING NOTES Patient is resting, eyes closed. Family at bedside. No signs of acute respiratory distress. IV patent, dressings c/d/i. SCD'S refused, patient education provided of risks and benefits. Bed alarm on, bed at lowest position, and call light within reach. Will begin d/c planning. Will continue to monitor.
[2019-08-31 20:03] VITALS: BP_SYST 108
--- NOTE | 2019-08-31 20:13 | NUR ---
SPOKE TO DR. RIOS, PATIENT IS CLEAR FOR D/C. WILL CONTINUE D/C PLANNING.
--- NOTE | 2019-08-31 21:30 | NUR ---
FLU SHOT SPOKE TO SON and son says that mother has already received flu shot for the season.
--- NOTE | 2019-08-31 21:35 | NUR ---
Patient stable, refused medications. Patient educated in benefits and risks of not taking medications. Patient verbalized understanding. Patient dressed and given bed bath. Call light within reach, bed alarm on, and bed at lowest position. Will continue to monitor.
--- NOTE | 2019-08-31 21:45 | NUR ---
D/C Patient Patient given medication reconciliation form and D/C instructions. Exit Care provided. Patient verbalized understanding. MD discussed with patient the results and treatment provided. Ambulatory with steady gait for discharge to home. Patient in stable condition, ID band removed. IV catheter removed, intact and dressing applied, no active bleeding. Patient educated on signs to watch for. All belongings sent with patient. Patient leaving by wheelchair to home with son's personal vehicle.
--- NOTE | 2019-09-20 13:24 | NUR ---
D/C Follow up call: PACKAGE COLLECTOR phoned pt who stated that she has been "doing fine" since she was discharged from the hospital. Pt stated her HH services are provided by [facility] and not [facility]. 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 Pt states she has an appointment with her PCP on 09/24. Pt stated she does not have any new prescription since discharge. Pt also verbalized concern about her [facility] pending application. PACKAGE COLLECTOR provided pt with [facility] phone number and encouraged to call to follow up on her application; pt agreed. No further follow up call needed.
== END 2019-08-31 21:45 | disposition home health service (06) | DRG 392 ==
LOC: SED 17:21 → INTOOBSV 22:19 → SMU 22:19 → OBSVTOIN 08-30 18:07 → SMU 08-31 17:28
PROVIDERS: ADMIT Internal Medicine; ATTEND Internal Medicine
DX: K57.92 Diverticulitis of intestine, part unspecified, without perforation or abscess without bleeding (principal); G89.29 Other chronic pain; M25.512 Pain in left shoulder; J45.909 Unspecified asthma, uncomplicated; E86.0 Dehydration; F03.90 Unspecified dementia, unspecified severity, without behavioral disturbance, psychotic disturbance, mood disturbance, and anxiety; I10 Essential (primary) hypertension; E03.9 Hypothyroidism, unspecified; M19.90 Unspecified osteoarthritis, unspecified site; Z79.899 Other long term (current) drug therapy; Z88.6 Allergy status to analgesic agent
CPT/HCPCS: 36415; 70450-TC; 71045; 71250-TC; 80048; 80053; 81003; 83605; 83880; 84484; 85025; 85651-TC; 87040-TC; 87086; 93005; 96361; 96374; 99285; G0378; J0360; J1630; J2060; J2543; J7050; J7120; Q0163

== ENCOUNTER 2019-12-05 23:00 | Emergency (ER) | payer OTHER ==
[~2019-12-05] VITALS: Ht 165.1 cm; Wt 63.5 kg
[2019-12-05 23:16] VITALS: BP_SYST 160
--- NOTE | 2019-12-05 23:23 | NUR ---
Patient triaged and placed in waiting room. VSS and patient appears in no acute distress at this time. Accompanied by son, awaiting available bed, and MD notified of need for MSE.
--- NOTE | 2019-12-06 00:10 | NUR ---
Pt BIB son with c/o pain to neck and right shoulder s/p fall in bathroom tonight. Pt reports dizziness, no head trauma, -LOC. No deformities noted to sites of pain.
--- NOTE | 2019-12-06 00:10 | NUR ---
Report given to DILLON Luque.
--- NOTE | 2019-12-06 00:10 | NUR ---
Patient to ER bed 2 to gown for evaluation. Side rails up.
--- NOTE | 2019-12-06 00:16 | NUR ---
ER Dr. Echeverria at bedside examining patient.
[2019-12-06] MEDS ORDERED: ACETAMINOPHEN 325 MG TABLET PO ONE (00:45)
[2019-12-06 00:55] VITALS: BP_SYST 154
--- NOTE | 2019-12-06 00:55 | NUR ---
Patient given written and verbal discharge instructions and verbalizes understanding. ER MD discussed with patient the results and treatment provided. Patient in stable condition. ID arm band removed. No Rx given. Patient educated on pain management and to follow up with PMD. Pain Scale 4/10. Opportunity for questions provided and answered. Medication side effect fact sheet provided.
== END 2019-12-06 00:55 | disposition home or self-care (01) ==
LOC: SED 23:00
DX: S16.1XXA Strain of muscle, fascia and tendon at neck level, initial encounter (principal); J45.909 Unspecified asthma, uncomplicated; I10 Essential (primary) hypertension; Z88.6 Allergy status to analgesic agent; Z79.899 Other long term (current) drug therapy; W19.XXXA Unspecified fall, initial encounter; Y93.89 Activity, other specified; Y92.89 Other specified places as the place of occurrence of the external cause; Y99.8 Other external cause status
CPT/HCPCS: 70450-TC; 72125-TC; 73030; 99284

== ENCOUNTER 2020-01-12 12:06 | Outpatient (CLI) | payer OTHER | END 2020-01-12 20:35 | disposition home or self-care (01) | LOC: SRD 12:06 | PROVIDERS: ATTEND Family Medicine | DX: S40.011A Contusion of right shoulder, initial encounter (principal); M47.812 Spondylosis without myelopathy or radiculopathy, cervical region; M19.011 Primary osteoarthritis, right shoulder; M46.02 Spinal enthesopathy, cervical region; X58.XXXA Exposure to other specified factors, initial encounter; Y93.89 Activity, other specified; Y92.89 Other specified places as the place of occurrence of the external cause; Y99.8 Other external cause status | CPT/HCPCS: 72050-TC; 73030; 73060-TC ==